=== PATIENT | male | born 1975 | race Two or more races ===

== ENCOUNTER 2016-10-31 11:22 | Emergency (ER) | payer MEDICAID ==
[~2016-10-31] VITALS: Ht 172.7 cm; Wt 96.6 kg
[2016-10-31 12:00] VITALS: BP 108/73
== END 2016-10-31 13:50 | disposition home or self-care (01) ==
LOC: ER 11:22
DX: H10.33 Unspecified acute conjunctivitis, bilateral (principal)

== ENCOUNTER 2023-01-21 17:36 | Emergency (ER) | payer MEDICAID ==
[~2023-01-21] VITALS: Ht 172.7 cm; Wt 110.6 kg
[2023-01-21] MEDS ORDERED: SODIUM CHLORIDE 0.9% 1,000 ML IV ONE (19:15)
[2023-01-21 19:20] LABS: Albumin 4.1 g/dL (3.4-5.0); Calcium 8.9 mg/dL (8.5-10.1); Potassium 3.7 mmol/L (3.5-5.1)
[2023-01-21 19:26] LABS: BUN/Creatinine Ratio 22.5 (10.0-20.0); Bilirubin, Total 0.4 mg/dL (0.2-1.0); Total Protein 7.2 g/dL (6.4-8.2)
[2023-01-21 19:29] LABS: Basophils # (auto) 0 10 ^3/uL (0-0.2); Basophils % (auto) 0.3 % (0.0-2.0); Eosinophils # (auto) 0.3 10 ^3/uL (0-0.8); Eosinophils % (auto) 4.7 % (0.0-7.0); Hematocrit 40.1 % (41.0-53.0); Hemoglobin 13.9 g/dL (13.5-17.5); Lymphocytes # (auto) 2.7 10 ^3/uL (0.4-5.4); Lymphocytes % (auto) 41.9 % (10.0-50.0); Mean Corpuscular Hemoglobin 29.6 pg (28.0-32.0); Mean Corpuscular Hgb Conc. 34.6 g/dL (32.0-36.0); Mean Corpuscular Volume 85.5 fL (80.0-100.0); Monocytes # (auto) 0.4 10 ^3/uL (0-1.3); Monocytes % (auto) 6.5 % (0.0-12.0); Neutrophils % (auto) 46.6 % (37.0-80.0); Nucleated Red Blood Cells % 0.1 %; Red Cell Distribution Width 14.1 % (11.8-14.3); White Blood Cell 6.4 10^3/uL (4.4-10.8)
[2023-01-21 19:39] LABS: Urine Bacteria NONE SEEN /hpf (None Seen); Urine Blood Negative /uL (Negative); Urine Specific Gravity 1.009 (1.001-1.035); Urine WBC <1 /hpf (0 - 3)
[2023-01-21] MEDS ORDERED: IOHEXOL 350 MG/ML 100ML IJ ONE (20:05)
[2023-01-21] MEDS ORDERED: HYDR-4902 PO (22:57)
[2023-01-21] MEDS ORDERED: IBUP800T26 PO (22:57)
[2023-01-21] MEDS ORDERED: KETOROLAC TROMETH 60MG/2ML VIAL IM ONE (23:00)
[2023-01-21 23:39] VITALS: BP 135/75
== END 2023-01-21 23:41 | disposition home or self-care (01) ==
LOC: ER 17:36
DX: M25.512 Pain in left shoulder (principal); R10.9 Unspecified abdominal pain
CPT/HCPCS: 36415; 71260; 74177; 80053; 81001; 83605; 83690; 84484; 85025; 87040; 93005; 96360; 96372; 99285; J1885; J7030; Q9967

== ENCOUNTER 2023-04-02 10:04 | Emergency (ER) | payer MEDICAID ==
[~2023-04-02] VITALS: Ht 165.1 cm; Wt 107.8 kg
[~2023-04-02 10:04] MED LIST: HYDR-4902 PO; IBUP-1455 PO
[2023-04-02 10:57] LABS: Urine Bacteria NONE SEEN /hpf (None Seen); Urine Blood Negative /uL (Negative); Urine Specific Gravity 1.019 (1.001-1.035); Urine WBC 1 /hpf (0 - 3)
[2023-04-02 11:13] LABS: Basophils # (auto) 0 10 ^3/uL (0-0.2); Basophils % (auto) 0.5 % (0.0-2.0); Eosinophils # (auto) 0.2 10 ^3/uL (0-0.8); Eosinophils % (auto) 2.9 % (0.0-7.0); Hematocrit 42.4 % (41.0-53.0); Hemoglobin 14.1 g/dL (13.5-17.5); Lymphocytes # (auto) 1.9 10 ^3/uL (0.4-5.4); Lymphocytes % (auto) 29.2 % (10.0-50.0); Mean Corpuscular Hgb Conc. 33.3 g/dL (32.0-36.0); Monocytes # (auto) 0.4 10 ^3/uL (0-1.3); Monocytes % (auto) 6.4 % (0.0-12.0); Neutrophils # (auto) 4.1 10 ^3/uL (1.6-8.6); Nucleated Red Blood Cells % 0.1 %; Red Blood Cells 4.87 10^6/uL (4.5-5.90); Red Cell Distribution Width 14.6 % (11.8-14.3); White Blood Cell 6.7 10^3/uL (4.4-10.8)
[2023-04-02 11:24] LABS: Potassium 4.1 mmol/L (3.5-5.1)
[2023-04-02 11:25] LABS: Albumin 3.7 g/dL (3.4-5.0); BUN/Creatinine Ratio 28.8 (10.0-20.0); Calcium 8.6 mg/dL (8.5-10.1)
[2023-04-02 11:27] LABS: Bilirubin, Total 0.5 mg/dL (0.2-1.0); Total Protein 7.1 g/dL (6.4-8.2)
[2023-04-02 11:37] LABS: INR 1.08 (0.9-1.15); Partial Thromboplastin Time 30.4 SEC (24.5-34.5)
[2023-04-02] MEDS ORDERED: ACET-6 PO (11:58)
[2023-04-02] MEDS ORDERED: CYCL-839 PO (11:58)
[2023-04-02 12:20] VITALS: BP 117/71
== END 2023-04-02 12:24 | disposition home or self-care (01) ==
LOC: ER 10:04
DX: M79.661 Pain in right lower leg (principal); M79.10 Myalgia, unspecified site; R06.02 Shortness of breath
CPT/HCPCS: 36415; 71045; 73590; 80053; 81001; 83880; 84484; 85025; 85379; 85610; 85730; 93005; 93970